=== PATIENT | male | born 1965 | race Hispanic/Latino ===

== ENCOUNTER 2017-07-13 16:44 | Emergency (ER) | payer MEDICARE ==
[~2017-07-13 16:44] MED LIST: BUPR-47 PO; CLON2TAB11 PO; COLE1TAB2 PO; FERS325 PO; GABA-531 PO; INSU100I21 SQ; LOPE2TAB52 PO; PANT40TA25 PO; SIME80TA11 PO
[2017-07-13 17:08] LABS: EOSINOPHILS % (AUTO) 2.1 % (0.0-8.0); HEMATOCRIT 28.9 % (42-54); MEAN CORPUSCULAR HEMOGLOBIN 29.3 pg (27.0-33.0); MEAN CORPUSCULAR HGB CONC 34.6 g/dL (32.0-36.0); MEAN CORPUSCULAR VOLUME 84.8 fL (79-99); MONOCYTES % (AUTO) 7.9 % (3.0-13.0); PLATELET COUNT (AUTO) 204 K/uL (130-400); RED BLOOD CELL COUNT(AUTO) 3.41 MIL/uL (4.50-6.20); WHITE BLOOD COUNT (AUTO) 6.4 K/uL (4.8-10.8)
[2017-07-13 17:20] LABS: INR 0.94 (0.85-1.15); PARTIAL THROMBOPLASTIN TIME 23.1 SEC (26.3-35.5); PROTHROMBIN TIME 9.9 SEC (9.6-11.6)
[2017-07-13 17:24] LABS: CREATININE 3.5 mg/dL (0.5-1.5); POTASSIUM 4.6 mmol/L (3.5-5.1)
[2017-07-13 17:35] LABS: APPEARANCE,URINE CLEAR (CLEAR); BILIRUBIN,URINE NEGATIVE (NEGATIVE); COLOR,URINE YELLOW (YELLOW); GLUCOSE, URINE (UA) 250 mg/dL (NEGATIVE); KETONES,URINE NEGATIVE (NEGATIVE); LEUKOCYTE ESTERASE ,URINE NEGATIVE (NEGATIVE); NITRATE,URINE NEGATIVE (NEGATIVE); OCCULT BLOOD,URINE SMALL (NEGATIVE); PROTEIN,URINE >=300 (NEGATIVE); UROBILINOGEN,URINE 0.2 mg/dL (0.2-1.0)
[2017-07-13 17:37] LABS: ALBUMIN 3.4 g/dL (3.5-5.0); BILIRUBIN,TOTAL 0.3 mg/dL (0.2-1.0); CREATINE KINASE MB 1.1 ng/mL (0.5-3.6); TOTAL PROTEIN, SERUM 6.8 g/dL (6.0-8.3)
[2017-07-13 17:44] LABS: AMPHET/METH SCREEN,URINE NEGATIVE (NEGATIVE); BARBITURATE SCREEN, URINE POSITIVE (NEGATIVE); BENZODIAZEPINES SCREEN,URINE NEGATIVE (NEGATIVE); CANNABINOID SCREEN,URINE NEGATIVE (NEGATIVE); COCAINE SCREEN,URINE NEGATIVE (NEGATIVE); OPIATE SCREEN,URINE NEGATIVE (NEGATIVE); PHENCYCLIDINE SCREEN,URINE NEGATIVE (NEGATIVE)
[2017-07-13 17:49] LABS: BACTERIA,URINE Few /HPF (None Seen); MUCUS,URINE Rare LPF (None Seen); SQUAMOUS EPITHELIAL CELL,UR Rare /HPF (0-2)
[2017-07-13 17:50] LABS: HYALINE CASTS, URINE 0-1 /LPF (0-1 /LPF)
[2017-07-13] MEDS ORDERED: HYOSCYAMINE SULFATE 0.125 MG TAB.SUBL SL ONE (17:52)
[2017-07-13] MEDS ORDERED: FAMOTIDINE 20MG TAB 20 MG TAB ONE (19:56)
== END 2017-07-13 20:16 | disposition home or self-care (01) ==
LOC: EDH 16:44
DX: K85.90 Acute pancreatitis without necrosis or infection, unspecified (principal); N28.9 Disorder of kidney and ureter, unspecified; E11.9 Type 2 diabetes mellitus without complications; I10 Essential (primary) hypertension; F32.9 Major depressive disorder, single episode, unspecified; Z88.8 Allergy status to other drugs, medicaments and biological substances; Z72.0 Tobacco use
CPT/HCPCS: 36415; 74176; 76705; 80053; 80305; 81001; 82150; 82550; 82553; 83690; 84484; 85025; 85610; 85730; 93005

== ENCOUNTER 2017-07-14 21:32 | Emergency (ER) | payer MEDICARE ==
[2017-07-14 22:12] LABS: BASOPHILS % (AUTO) 1.7 % (0.0-5.0); EOSINOPHILS % (AUTO) 1.4 % (0.0-8.0); HEMATOCRIT 31.9 % (42-54); LYMPHOCYTES % (AUTO) 21.3 % (21.0-51.0); MEAN CORPUSCULAR HEMOGLOBIN 28.6 pg (27.0-33.0); MEAN CORPUSCULAR HGB CONC 34.3 g/dL (32.0-36.0); MEAN CORPUSCULAR VOLUME 83.3 fL (79-99); MONOCYTES % (AUTO) 7.7 % (3.0-13.0); NEUTROPHILS % (AUTO) 67.9 % (40.0-77.0); PLATELET COUNT (AUTO) 246 K/uL (130-400); RED BLOOD CELL COUNT(AUTO) 3.83 MIL/uL (4.50-6.20); RED CELL DISTRIBUTION WIDTH 14.6 % (11.0-15.5); WHITE BLOOD COUNT (AUTO) 5.8 K/uL (4.8-10.8)
[2017-07-14 22:22] LABS: INR 0.98 (0.85-1.15); PARTIAL THROMBOPLASTIN TIME 23.8 SEC (26.3-35.5); PROTHROMBIN TIME 10.3 SEC (9.6-11.6)
[2017-07-14 22:23] LABS: CREATININE 3.5 mg/dL (0.5-1.5)
[2017-07-14 22:36] LABS: ALBUMIN 3.6 g/dL (3.5-5.0); BILIRUBIN,TOTAL 0.4 mg/dL (0.2-1.0); CREATINE KINASE MB 1.4 ng/mL (0.5-3.6); TOTAL PROTEIN, SERUM 7.6 g/dL (6.0-8.3)
[2017-07-14] MEDS ORDERED: HYOSCYAMINE SULFATE 0.125 MG TAB.SUBL SL ONE (22:55)
== END 2017-07-14 23:59 | disposition home or self-care (01) ==
LOC: EDH 21:32
DX: E11.40 Type 2 diabetes mellitus with diabetic neuropathy, unspecified (principal); R10.33 Periumbilical pain; R07.9 Chest pain, unspecified; R11.2 Nausea with vomiting, unspecified; I10 Essential (primary) hypertension; Z88.8 Allergy status to other drugs, medicaments and biological substances
CPT/HCPCS: 36415; 74176; 80053; 82550; 82553; 83690; 84484; 85025; 85610; 85730; 93005

== ENCOUNTER 2017-10-17 09:14 | Day surgery (SDC) | payer MEDICARE ==
[~2017-10-17] VITALS: Ht 174 cm; Wt 60.1 kg
[~2017-10-17 09:14] MED LIST changes: +AMLO10TA6 PO; +ATOR10 PO; +CHOL3000 PO; +CYCL30DR OU; +DICL100G31 TP; -FERS325 PO; +FLUT16H NASAL; -GABA-531 PO; +GLIP-162 PO; -LOPE2TAB52 PO; +MUPI22O TP; +ONDA4TAB7 PO; +PREG75 PO; +RANI150T7 PO; +SERT50TA12 PO; -SIME80TA11 PO; +SODIUM CHLORIDE 0.9% 1000ML 1,000 ML IV ONE; +SUCR1ORA3 PO
[2017-10-17 09:58] VITALS: BP 147/80
[2017-10-17] MEDS ORDERED: PANT20TA12 PO (10:22)
[2017-10-17] MEDS ORDERED: [UNRECOGNIZED DRUG - OTHER] (10:22)
[2017-10-17] MEDS ORDERED: INSU100V12 SQ (10:22)
[2017-10-17] MEDS ORDERED: REFRESH (10:22)
[2017-10-17] MEDS ORDERED: PROPOFOL 10 MG/ML 20ML VIAL IV ONE ×2 (10:33)
[2017-10-17 10:48] VITALS: BP 125/59
[2017-10-17 10:52] VITALS: BP 116/58
[2017-10-17 10:57] VITALS: BP 125/64
[2017-10-17 11:02] VITALS: BP 112/70
[2017-10-17 11:07] VITALS: BP 135/88
== END 2017-10-17 12:36 | disposition home or self-care (01) ==
LOC: ENDO 09:14 → DAH 09:14 → ENDO 12:36
PROVIDERS: ATTEND Internal Medicine
DX: K29.50 Unspecified chronic gastritis without bleeding (principal); K31.89 Other diseases of stomach and duodenum; K22.8 Other specified diseases of esophagus; E11.42 Type 2 diabetes mellitus with diabetic polyneuropathy; K25.9 Gastric ulcer, unspecified as acute or chronic, without hemorrhage or perforation; B18.2 Chronic viral hepatitis C; K21.9 Gastro-esophageal reflux disease without esophagitis; I12.9 Hypertensive chronic kidney disease with stage 1 through stage 4 chronic kidney disease, or unspecified chronic kidney disease; E11.22 Type 2 diabetes mellitus with diabetic chronic kidney disease; N18.9 Chronic kidney disease, unspecified; D64.9 Anemia, unspecified; Z83.3 Family history of diabetes mellitus; Z79.899 Other long term (current) drug therapy; Z98.890 Other specified postprocedural states; F32.9 Major depressive disorder, single episode, unspecified; Z79.84 Long term (current) use of oral hypoglycemic drugs; Z80.9 Family history of malignant neoplasm, unspecified
CPT/HCPCS: 43239; 82948 ×2; 88305; 88342; A4606; J2704 ×2; J7030

== ENCOUNTER 2017-10-24 13:50 | Emergency (ER) | payer MEDICARE ==
[~2017-10-24 13:50] MED LIST changes: -DICL100G31 TP; -INSU100I21 SQ; +INSU100V12 SQ; -MUPI22O TP; -ONDA4TAB7 PO; +PANT20TA12 PO; -PANT40TA25 PO; +REFRESH; -SODIUM CHLORIDE 0.9% 1000ML 1,000 ML IV ONE; -SUCR1ORA3 PO; +[UNRECOGNIZED DRUG - OTHER]
[2017-10-24 14:47] LABS: BASOPHILS % (AUTO) 1.1 % (0.0-5.0); HEMATOCRIT 25.9 % (42-54); LYMPHOCYTES % (AUTO) 23.2 % (21.0-51.0); MEAN CORPUSCULAR HEMOGLOBIN 29.1 pg (27.0-33.0); MEAN CORPUSCULAR HGB CONC 32.7 g/dL (32.0-36.0); MEAN CORPUSCULAR VOLUME 89.1 fL (79-99); MONOCYTES % (AUTO) 9.8 % (3.0-13.0); NEUTROPHILS % (AUTO) 61.9 % (40.0-77.0); PLATELET COUNT (AUTO) 215 K/uL (130-400); RED BLOOD CELL COUNT(AUTO) 2.91 MIL/uL (4.50-6.20); WHITE BLOOD COUNT (AUTO) 4.7 K/uL (4.8-10.8)
== END 2017-10-24 16:19 | disposition home or self-care (01) ==
LOC: EDH 13:50
DX: R06.02 Shortness of breath (principal); R53.83 Other fatigue; R42 Dizziness and giddiness; R53.1 Weakness; I10 Essential (primary) hypertension; E11.40 Type 2 diabetes mellitus with diabetic neuropathy, unspecified; Z88.8 Allergy status to other drugs, medicaments and biological substances; F19.10 Other psychoactive substance abuse, uncomplicated; Z72.0 Tobacco use
CPT/HCPCS: 36415; 84484; 85025; 93005

== ENCOUNTER → 2018-02-02 | Outpatient (CLI) | payer MEDICARE | END | disposition home or self-care (01) | LOC: RAH 11:06 | PROVIDERS: ATTEND Internal Medicine Gastroenterology | DX: R10.10 Upper abdominal pain, unspecified (principal); R11.2 Nausea with vomiting, unspecified; R14.0 Abdominal distension (gaseous); K85.00 Idiopathic acute pancreatitis without necrosis or infection | CPT/HCPCS: 78264; A9541 ==

== ENCOUNTER → 2018-02-08 | Outpatient (CLI) | payer MEDICARE | END | disposition home or self-care (01) | LOC: RAH 08:10 | PROVIDERS: ATTEND Internal Medicine Gastroenterology | DX: K85.00 Idiopathic acute pancreatitis without necrosis or infection (principal); R10.10 Upper abdominal pain, unspecified | CPT/HCPCS: 76700 ==

== ENCOUNTER 2018-02-14 05:30 | Day surgery (SDC) | payer MEDICARE ==
[~2018-02-14] VITALS: Ht 175.3 cm; Wt 60.3 kg
[2018-02-14] VITALS (8 sets, daily range): BP systolic 110–173; BP diastolic 55–89
[~2018-02-14 05:30] MED LIST changes: -AMLO10TA6 PO; +AMLO10TA7 PO
[2018-02-14] MEDS ORDERED: SODIUM CHLORIDE 0.9% 1000ML 1,000 ML IV ONE (05:45)
[2018-02-14] MEDS ORDERED: PROPOFOL 10 MG/ML 20ML VIAL IV ONE ×2 (06:45→06:46)
[2018-02-14] MEDS ORDERED: CARAL PO (06:50)
[2018-02-14] MEDS ORDERED: TIZA2TAB4 PO (06:50)
[2018-02-14] MEDS ORDERED: GABA-531 PO (06:50)
[2018-02-14] MEDS ORDERED: INSU100I21 SQ (06:50)
[2018-02-14] MEDS ORDERED: HYDR-3420 PO (06:50)
[2018-02-14] MEDS ORDERED: IRON1CAP32 PO (06:50)
[2018-02-14] MEDS ORDERED: SERT100T12 PO (06:50)
[2018-02-14] MEDS ORDERED: ONDA8TAB12 PO (06:50)
[2018-02-14] MEDS ORDERED: LOPE2CAP PO (06:50)
[2018-02-14] MEDS ORDERED: VITAMIN D PO (06:50)
[2018-02-14] MEDS ORDERED: FAMO20TA8 PO (06:50)
== END 2018-02-14 08:10 | disposition home or self-care (01) ==
LOC: DAH 05:30 → ENDO 05:30
PROVIDERS: ATTEND Internal Medicine
DX: K86.9 Disease of pancreas, unspecified (principal); K76.89 Other specified diseases of liver; K31.89 Other diseases of stomach and duodenum; E11.42 Type 2 diabetes mellitus with diabetic polyneuropathy; K21.9 Gastro-esophageal reflux disease without esophagitis; E11.22 Type 2 diabetes mellitus with diabetic chronic kidney disease; N18.9 Chronic kidney disease, unspecified; D64.9 Anemia, unspecified; Z79.899 Other long term (current) drug therapy; Z80.9 Family history of malignant neoplasm, unspecified; Z79.84 Long term (current) use of oral hypoglycemic drugs
CPT/HCPCS: 43237; 82948 ×2; J2704 ×2; J7030; 43231

== ENCOUNTER 2018-02-27 17:55 | Emergency (ER) | payer MEDICARE ==
[~2018-02-27 17:55] MED LIST changes: -BUPR-47 PO; +CARAL PO; -CHOL3000 PO; -CLON2TAB11 PO; +FAMO20TA8 PO; +GABA-531 PO; -GLIP-162 PO; +HYDR-3420 PO; +INSU100I21 SQ; -INSU100V12 SQ; +IRON1CAP32 PO; +LOPE2CAP PO; +ONDA8TAB12 PO; -PANT20TA12 PO; -PREG75 PO; -REFRESH; +SERT100T12 PO; -SERT50TA12 PO; +TIZA2TAB4 PO; +VITAMIN D PO; -[UNRECOGNIZED DRUG - OTHER]
[2018-02-27] MEDS ORDERED: ASPIRIN 325 MG TABLET ONE (18:20)
[2018-02-27 18:27] LABS: BASOPHILS % (AUTO) 1.3 % (0.0-5.0); EOSINOPHILS % (AUTO) 5.7 % (0.0-8.0); LYMPHOCYTES % (AUTO) 23.4 % (21.0-51.0); MEAN CORPUSCULAR HEMOGLOBIN 29.8 pg (27.0-33.0); MEAN CORPUSCULAR HGB CONC 33.3 g/dL (32.0-36.0); MEAN CORPUSCULAR VOLUME 89.5 fL (79-99); MONOCYTES % (AUTO) 8.3 % (3.0-13.0); NEUTROPHILS % (AUTO) 61.3 % (40.0-77.0); NUCLEATED RED BLOOD CELLS 0.1 % (0.0-0.19); PLATELET COUNT (AUTO) 192 K/uL (130-400); RED BLOOD CELL COUNT(AUTO) 2.79 MIL/uL (4.50-6.20); RED CELL DISTRIBUTION WIDTH 13.7 % (11.0-15.5)
[2018-02-27 18:40] LABS: INR 0.91 (0.85-1.15); PARTIAL THROMBOPLASTIN TIME 26.4 SEC (26.3-35.5); PROTHROMBIN TIME 9.6 SEC (9.6-11.6)
[2018-02-27 18:52] LABS: ALBUMIN 3.6 g/dL (3.5-5.0); BILIRUBIN,TOTAL 0.3 mg/dL (0.2-1.0); CREATININE 3.9 mg/dL (0.5-1.5); POTASSIUM 4.7 mmol/L (3.5-5.1); TOTAL PROTEIN, SERUM 7.1 g/dL (6.0-8.3)
[2018-02-27 19:01] LABS: B-TYPE NATRIURETIC PEPTIDE 92 pg/mL (0-100)
[2018-02-27] MEDS ORDERED: 0.9% SODIUM CHLORIDE 1000 ML IV BAG IV ONE (19:01)
[2018-02-27] MEDS ORDERED: INSULIN HUMULIN R 100 UNIT/ML 3ML ONE (19:34)
== END 2018-02-27 22:15 | disposition home or self-care (01) ==
LOC: EDH 17:55
DX: E11.65 Type 2 diabetes mellitus with hyperglycemia (principal); I10 Essential (primary) hypertension; D64.9 Anemia, unspecified; E11.40 Type 2 diabetes mellitus with diabetic neuropathy, unspecified; F32.9 Major depressive disorder, single episode, unspecified; F41.9 Anxiety disorder, unspecified; Z72.0 Tobacco use; Z88.8 Allergy status to other drugs, medicaments and biological substances; Z79.4 Long term (current) use of insulin
CPT/HCPCS: 36415; 71045; 80053; 82550; 82948 ×2; 83880; 84484; 85025; 85610; 85730; 93005; 96361; 96374; 99284; J1815; J7030

== ENCOUNTER 2018-04-23 12:43 | Inpatient (IN) | payer MEDICARE ==
[~2018-04-23] VITALS: Ht 170.2 cm; Wt 61.7 kg
[2018-04-23] MEDS ORDERED: ASPIRIN 325MG EC TAB 325 MG TABLET.DR PO ONE (13:48)
[2018-04-23] MEDS ORDERED: ENOXAPARIN SODIUM 30 MG/0.3 ML SQ ONE (13:49)
[2018-04-23] MEDS ORDERED: FAMOTIDINE 20MG TAB 20 MG TAB ONE (13:49)
[2018-04-23] MEDS ORDERED: NITROGLYCERIN 1GM/1 INCH PACKET TD ONE (13:49)
[2018-04-23 13:54] LABS: CREATINE KINASE, TOTAL 120 U/L (21-232); MYOGLOBIN 112 ng/mL (10-92); TROPONIN I < 0.04 ng/mL (0.00-0.06)
[2018-04-23 15:11] LABS: BASOPHILS % (AUTO) 2.1 % (0.0-5.0); EOSINOPHILS % (AUTO) 8.4 % (0.0-8.0); HEMATOCRIT 26.7 % (42-54); LYMPHOCYTES % (AUTO) 19.8 % (21.0-51.0); MEAN CORPUSCULAR HEMOGLOBIN 29.8 pg (27.0-33.0); MEAN CORPUSCULAR HGB CONC 33.6 g/dL (32.0-36.0); MEAN CORPUSCULAR VOLUME 88.5 fL (79-99); MONOCYTES % (AUTO) 7.1 % (3.0-13.0); NEUTROPHILS % (AUTO) 62.6 % (40.0-77.0); NUCLEATED RED BLOOD CELLS 0.1 % (0.0-0.19); PLATELET COUNT (AUTO) 223 K/uL (130-400); RED BLOOD CELL COUNT(AUTO) 3.01 MIL/uL (4.50-6.20); RED CELL DISTRIBUTION WIDTH 14.1 % (11.0-15.5); WHITE BLOOD COUNT (AUTO) 4.3 K/uL (4.8-10.8)
[2018-04-23 15:20] LABS: CREATININE 4.8 mg/dL (0.5-1.5); POTASSIUM 4.9 mmol/L (3.5-5.1)
[2018-04-23 15:25] LABS: BILIRUBIN,TOTAL 0.2 mg/dL (0.2-1.0); TOTAL PROTEIN, SERUM 6.7 g/dL (6.0-8.3)
[2018-04-23 15:54] LABS: INR 0.96 (0.85-1.15); PARTIAL THROMBOPLASTIN TIME 25.6 SEC (26.3-35.5); PROTHROMBIN TIME 9.9 SEC (9.6-11.6)
--- NOTE | 2018-04-23 21:40 | NUR ---
ASSESSMENT NOTE 2107 REPORT RECEIVED FROM MARCO A HERNANDEZ. 2132 PATIENT ARRIVED TO ROOM 218 VIA STRETCHER AND TRANSFERRED INDEPENDENTLY WITH STANDBY ASSIST TO BATHROOM AND THEN TO BED. PATIENT REMOVED PANTS AND PUT ON SLEEPWEAR. PLAN OF CARE DISCUSSED WITH PATIENT. ASSESSMENT COMPLETED. DENIES ACUTE PAIN AT THIS TIME. REINFORCED SAFETY INSTRUCTION. CALL LIGHT IN REACH.
[2018-04-23 21:46] VITALS: BP 162/88
[2018-04-23] MEDS: ACETAMINOPHEN 325 MG TAB ONE ×2 (22:42→22:45)
[2018-04-23] MEDS ORDERED: ACETAMINOPHEN 325 MG TAB PO PRN ×2 (22:45)
[2018-04-23] MEDS ORDERED: HYDROMORPHONE 4MG/ML 1ML VIAL IVP PRN (22:45)
[2018-04-23 22:47] VITALS: BP 162/88
--- NOTE | 2018-04-23 22:50 | NUR ---
HEADACHE 0 PATIENT COMPLAINT OF HEADACHE. NO ANALGESIC PROFILED FOR PAIN. DR DESIR PAGED ORDERS RECEIVED AND ENTERED INTO SYSTEM. PATIENT MEDICATED.
[2018-04-24] VITALS (7 sets, daily range): BP systolic 115–158; BP diastolic 63–87
[2018-04-24 00:02] LABS: TROPONIN I 0.04 ng/mL (0.00-0.06)
[2018-04-24] MEDS: NITROGLYCERIN 1GM/1 INCH PACKET TD SCH ×2 (00:35→05:44)
[2018-04-24] MEDS ORDERED: LOPERAMIDE HCL 2 MG CAP PO PRN (01:45)
[2018-04-24] MEDS ORDERED: LOPE2CAP PO (01:48)
[2018-04-24] MEDS ORDERED: TAMS0.4C32 PO (01:48)
[2018-04-24] MEDS ORDERED: PANT40TA25 PO (01:48)
[2018-04-24] MEDS: ONDANSETRON HCL 4 MG/2 ML VIAL IVP PRN (06:03)
[2018-04-24 06:06] LABS: HEMATOCRIT 25.7 % (42-54); MEAN CORPUSCULAR HEMOGLOBIN 29.1 pg (27.0-33.0); MEAN CORPUSCULAR HGB CONC 33.2 g/dL (32.0-36.0); MEAN CORPUSCULAR VOLUME 87.5 fL (79-99); PLATELET COUNT (AUTO) 213 K/uL (130-400); RED BLOOD CELL COUNT(AUTO) 2.94 MIL/uL (4.50-6.20); RED CELL DISTRIBUTION WIDTH 13.9 % (11.0-15.5); WHITE BLOOD COUNT (AUTO) 3.5 K/uL (4.8-10.8)
--- NOTE | 2018-04-24 06:14 | NUR ---
TRANSFER TO GI PATIENT LEFT TO GI LAB WITH MARCO A OLEARY. PATIENT ALERT AWAKE AND ORIENTED. NO SIGNS OF DISTRESS. TRANSFERRED WITH PORTABLE MONITOR
[2018-04-24 06:19] LABS: INR 0.95 (0.85-1.15)
[2018-04-24 06:21] LABS: ALBUMIN 2.7 g/dL (3.5-5.0); BILIRUBIN,TOTAL 0.2 mg/dL (0.2-1.0); CREATININE 4.6 mg/dL (0.5-1.5); POTASSIUM 4.5 mmol/L (3.5-5.1); TOTAL PROTEIN, SERUM 6.4 g/dL (6.0-8.3)
[2018-04-24 06:26] LABS: TROPONIN I 0.05 ng/mL (0.00-0.06)
[2018-04-24] MEDS ORDERED: LIDOCAINE HCL 2% 20ML ONE (06:56)
[2018-04-24] MEDS ORDERED: PROPOFOL 10 MG/ML 20ML VIAL IV ONE (06:56)
[2018-04-24] MEDS ORDERED: SUCCINYLCHOLINE CHLORIDE 20 MG/ML 10 ML VIAL ONE (06:56)
[2018-04-24] MEDS ORDERED: REGADENOSON 0.4 MG/5 ML PF SYG IVP SCH (07:00)
[2018-04-24] MEDS: FAMOTIDINE 20MG TAB 20 MG TAB PO SCH (09:00)
[2018-04-24] MEDS ORDERED: ASPIRIN 325 MG TABLET PO SCH (09:00)
[2018-04-24] MEDS ORDERED: NITROGLYCERIN 0.4 MG SL TAB SL PRN (09:45)
[2018-04-24 10:04] LABS: AMPHET/METH SCREEN,URINE NEGATIVE (NEGATIVE); BARBITURATE SCREEN, URINE NEGATIVE (NEGATIVE); BENZODIAZEPINES SCREEN,URINE NEGATIVE (NEGATIVE); CANNABINOID SCREEN,URINE NEGATIVE (NEGATIVE); COCAINE SCREEN,URINE NEGATIVE (NEGATIVE); OPIATE SCREEN,URINE NEGATIVE (NEGATIVE); PHENCYCLIDINE SCREEN,URINE NEGATIVE (NEGATIVE)
[2018-04-24] MEDS: TAMSULOSIN HCL 0.4 MG CAP.ER.24H PO SCH (11:17)
[2018-04-24] MEDS: AMLODIPINE BESYLATE 5 MG TAB PO SCH (11:17)
[2018-04-24] MEDS: GABAPENTIN 300 MG CAPSULE PO SCH (11:17)
[2018-04-24] MEDS: PANTOPRAZOLE SODIUM 40 MG TABLET.DR PO SCH (11:17)
[2018-04-24] MEDS: ENOXAPARIN SODIUM 30 MG/0.3 ML SQ SCH (11:17)
[2018-04-24] MEDS: INSULIN GLARGINE 100 UNITS/ML 10 ML VIAL SQ SCH (11:57)
--- NOTE | 2018-04-24 14:39 | NUR ---
DC PLAN VISITED WITH PATIENT. PATIENT LIVES ALONE. SEMI INDEPENDENT ABLE TO PERFORM ADL'S. PATIENT HAS PROVIDER 4 HOURS A DAY. PATIENT HAS A CANE. FEELS SAFE TO RETURN HOME. Addendum: 04/24/18 at 1441 by KRISTIN HILL RN CM Amended: Links added.
--- NOTE | 2018-04-24 17:04 | NUR ---
SPOKE WITH RENAE FROM RADIOLOGY---STATED IT IS GOING TO TAKE 30 MINUTES FOR RADIOLOGIST TO READ CT CHEST. INFORMED PRIMARY NURSE, CE RAMEY RN.
--- NOTE | 2018-04-24 17:30 | NUR ---
TRANSFER PT RECEIVED FROM RM 218 VIA . TOLERATED WELL. NO DISTRESS NOTED. ORIENTED TO RM. A/O X 3. DENIES CHEST PAIN OR DISCOMFORT. DENIES PALPITATIONS. TELE: SR. DENIES N/V AND/OR DIARRHEA. PENDING CT CHEST RESULT. UP AD KELLEY. INSTRUCTED TO CALL FOR ASSISTANCE. CALL KARELY W/IN REACH.
[2018-04-24] MEDS ORDERED: ATORVASTATIN CALCIUM 10 MG TABLET PO SCH (21:00)
[2018-04-24] MEDS ORDERED: INSULIN GLARGINE 100 UNITS/ML 10 ML VIAL SQ SCH (21:00)
[2018-04-25 03:55] VITALS: BP 140/75
[2018-04-25 07:27] VITALS: BP 143/81
--- NOTE | 2018-04-25 07:45 | NUR ---
AM ASSESSMENT PT SITTING UP IN BED, WATCHING TV. A/O X 3. NO SOB. NO DISTRESS NOTED. DENIES CHEST PAIN OR DISCOMFORT. DENIES PALPITATIONS. TELE: SR 70s. (+) NAUSEA. ZOFRAN TO BE GIVEN. STATES "ALWAYS" HAVING NAUSEA IN AM. UP AD KELLEY. INSTRUCTED TO CALL FOR ASSISTANCE. CALL KARELY W/IN REACH.
[2018-04-25] MEDS: PANTOPRAZOLE SODIUM 40 MG TABLET.DR PO SCH (08:13)
[2018-04-25] MEDS: AMLODIPINE BESYLATE 5 MG TAB PO SCH (08:13)
[2018-04-25] MEDS: FAMOTIDINE 20MG TAB 20 MG TAB PO SCH (08:13)
[2018-04-25] MEDS: ONDANSETRON HCL 4 MG/2 ML VIAL IVP PRN (08:14)
[2018-04-25] MEDS: TAMSULOSIN HCL 0.4 MG CAP.ER.24H PO SCH (08:14)
[2018-04-25] MEDS: GABAPENTIN 300 MG CAPSULE PO SCH (08:14)
[2018-04-25] MEDS: ENOXAPARIN SODIUM 30 MG/0.3 ML SQ SCH (08:16)
[2018-04-25] MEDS: INSULIN GLARGINE 100 UNITS/ML 10 ML VIAL SQ SCH (08:16)
[2018-04-25] MEDS ORDERED: VITAMIN D 5000 UNIT PO SCH (09:00)
[2018-04-25] MEDS ORDERED: ASPIRIN 325 MG TABLET PO SCH (09:00)
[2018-04-25] MEDS ORDERED: COLESTIPOL HCL 2 GM PO SCH (09:00)
[2018-04-25] MEDS ORDERED: ASPIRIN 81 MG EC TAB PO SCH (09:00)
--- NOTE | 2018-04-25 11:10 | NUR ---
DISCHARGE VERBAL & WRITTEN DISCHARGE INSTRUCTIONS REVIEWED & GIVEN TO PT. QUESTIONS ENCOURAGED & CLARIFIED. PROPER CARE & MGT OF DYSPHAGIA REVIEWED. PT TO CONTINUE TAKING HOME MEDICATIONS. F/U APPT INFO GIVEN. TELE JIGNESH REMOVED. IV DISCONTINUED. FAMILY TAKE PT HOME. PT TO NOTIFY STAFF WHEN FAMILY ARRIVES. PT REQUESTING TO HAVE LUNCH PRIOR TO LEAVING. PT TO GATHER PERSONAL BELONGINGS.
[2018-04-25 11:13] VITALS: BP 141/79
--- NOTE | 2018-04-25 13:05 | NUR ---
DISCHARGE FAMILY HERE TO TAKE PT HOME. PT TAKEN TO PRIVATE VEHICLE VIA WC BY Scott GRAMAJO PCP. NO DISTRESS NOTED.
== END 2018-04-25 13:00 | disposition home or self-care (01) | DRG 391 ==
LOC: EDH 12:43 → EDHIP 12:44 → 2CH 21:33 → 2DH 04-24 18:01
PROVIDERS: ADMIT Family Medicine; ATTEND Family Medicine
PROC: 0D758ZZ Dilation of Esophagus, Via Natural or Artificial Opening Endoscopic (ICD-10-PCS; principal; 2018-04-23)
DX: K22.2 Esophageal obstruction (principal); N18.6 End stage renal disease; I12.0 Hypertensive chronic kidney disease with stage 5 chronic kidney disease or end stage renal disease; R13.10 Dysphagia, unspecified; E11.22 Type 2 diabetes mellitus with diabetic chronic kidney disease; B18.2 Chronic viral hepatitis C; D63.8 Anemia in other chronic diseases classified elsewhere; F14.10 Cocaine abuse, uncomplicated; E78.5 Hyperlipidemia, unspecified; E11.42 Type 2 diabetes mellitus with diabetic polyneuropathy; K21.9 Gastro-esophageal reflux disease without esophagitis; Z87.891 Personal history of nicotine dependence; Z91.19 Patient's noncompliance with other medical treatment and regimen
CPT/HCPCS: 36415; 43249; 71250; 80053; 80305; 82550; 82948; 83874; 84484; 85025; 85027; 85610; 85730; 93005; G0378; J0330; J1650; J2405; J2704; J2785; J3490

== ENCOUNTER 2018-06-05 07:15 | Day surgery (SDC) | payer MEDICARE ==
[~2018-06-05] VITALS: Ht 170.2 cm; Wt 61.2 kg
[~2018-06-05 07:15] MED LIST changes: -CARAL PO; -CYCL30DR OU; -FAMO20TA8 PO; -FLUT16H NASAL; -HYDR-3420 PO; -IRON1CAP32 PO; -ONDA8TAB12 PO; +PANT40TA25 PO; -RANI150T7 PO; -SERT100T12 PO; +SODIUM CHLORIDE 0.9% 1000ML 1,000 ML IV ONE; +TAMS0.4C32 PO; -TIZA2TAB4 PO; -VITAMIN D PO
[2018-06-05 08:48] VITALS: BP 152/96
[2018-06-05] MEDS ORDERED: PROPOFOL 10 MG/ML 20ML VIAL IV ONE (10:06)
[2018-06-05] MEDS ORDERED: LIDOCAINE HCL 2% 20ML ONE (10:06)
[2018-06-05 10:22] VITALS: BP 143/69
[2018-06-05 10:27] VITALS: BP 150/78
[2018-06-05 10:32] VITALS: BP 168/94
[2018-06-05 10:40] VITALS: BP 166/94
== END 2018-06-05 10:40 | disposition home or self-care (01) ==
LOC: DAH 07:15 → ENDO 07:15
PROVIDERS: ATTEND Internal Medicine
DX: K21.0 Gastro-esophageal reflux disease with esophagitis (principal); K44.9 Diaphragmatic hernia without obstruction or gangrene; E11.42 Type 2 diabetes mellitus with diabetic polyneuropathy; K29.70 Gastritis, unspecified, without bleeding; K21.9 Gastro-esophageal reflux disease without esophagitis; Z88.8 Allergy status to other drugs, medicaments and biological substances; E11.22 Type 2 diabetes mellitus with diabetic chronic kidney disease; N18.9 Chronic kidney disease, unspecified; Z79.899 Other long term (current) drug therapy; Z98.890 Other specified postprocedural states; M54.5 Low back pain; Z80.9 Family history of malignant neoplasm, unspecified
CPT/HCPCS: 36415; 43239; 43249; 82948; 84132; 88305; A4606; J2704; J3490; J7030

== ENCOUNTER 2018-06-18 14:17 | Inpatient (IN) | payer MEDICARE | END 2018-06-21 18:22 | disposition home or self-care (01) | LOC: EDH 14:17 → EDHIP 17:05 → 2AH 20:43 | DX: E11.65 Type 2 diabetes mellitus with hyperglycemia (principal); N18.6 End stage renal disease; I12.0 Hypertensive chronic kidney disease with stage 5 chronic kidney disease or end stage renal disease; A04.72 Enterocolitis due to Clostridium difficile, not specified as recurrent; Z99.2 Dependence on renal dialysis; E11.22 Type 2 diabetes mellitus with diabetic chronic kidney disease ==

== ENCOUNTER 2018-07-15 12:48 | Emergency (ER) | payer MEDICARE ==
[~2018-07-15 12:48] MED LIST changes: -SODIUM CHLORIDE 0.9% 1000ML 1,000 ML IV ONE
[2018-07-15] MEDS ORDERED: PROCHLORPERAZINE EDISYLATE 10 MG/2 ML VIAL ONE (13:33)
[2018-07-15] MEDS ORDERED: DiphenhydrAMINE HCL 50 MG/ML VIAL ONE (13:33)
[2018-07-15] MEDS ORDERED: FAMOTIDINE/PF 20 MG/2 ML VIAL IV ONE (13:34)
[2018-07-15 13:38] LABS: BASOPHILS % (AUTO) 1.2 % (0.0-5.0); EOSINOPHILS % (AUTO) 1.7 % (0.0-8.0); HEMATOCRIT 41.7 % (42-54); LYMPHOCYTES % (AUTO) 19.7 % (21.0-51.0); MEAN CORPUSCULAR HEMOGLOBIN 30.4 pg (27.0-33.0); MEAN CORPUSCULAR HGB CONC 33.4 g/dL (32.0-36.0); MONOCYTES % (AUTO) 6.2 % (3.0-13.0); NEUTROPHILS % (AUTO) 71.2 % (40.0-77.0); NUCLEATED RED BLOOD CELLS 0.1 % (0.0-0.19); PLATELET COUNT (AUTO) 167 K/uL (130-400); RED BLOOD CELL COUNT(AUTO) 4.58 MIL/uL (4.50-6.20); RED CELL DISTRIBUTION WIDTH 16.9 % (11.0-15.5); WHITE BLOOD COUNT (AUTO) 4.2 K/uL (4.8-10.8)
[2018-07-15 13:48] LABS: CREATININE 4.8 mg/dL (0.5-1.5); POTASSIUM 3.9 mmol/L (3.5-5.1)
== END 2018-07-15 15:56 | disposition home or self-care (01) ==
LOC: EDH 12:48
DX: R10.13 Epigastric pain (principal); R11.2 Nausea with vomiting, unspecified; F41.9 Anxiety disorder, unspecified; Z88.8 Allergy status to other drugs, medicaments and biological substances
CPT/HCPCS: 36415; 80048; 85025; 96374; 96375; 99284; J0780; J1200; J3490

== ENCOUNTER → 2018-08-28 | Outpatient (CLI) | payer MEDICARE ==
[~2018-08-28] VITALS: Ht 172.7 cm; Wt 57.2 kg
[2018-08-28 13:57] LABS: BASOPHILS % (AUTO) 0.6 % (0.0-5.0); EOSINOPHILS % (AUTO) 3.8 % (0.0-8.0); HEMATOCRIT 38.5 % (42-54); LYMPHOCYTES % (AUTO) 26.8 % (21.0-51.0); MEAN CORPUSCULAR HEMOGLOBIN 30.2 pg (27.0-33.0); MEAN CORPUSCULAR HGB CONC 33.7 g/dL (32.0-36.0); MEAN CORPUSCULAR VOLUME 89.4 fL (79-99); MONOCYTES % (AUTO) 6.8 % (3.0-13.0); NUCLEATED RED BLOOD CELLS 0.1 % (0.0-0.19); PLATELET COUNT (AUTO) 155 K/uL (130-400); RED BLOOD CELL COUNT(AUTO) 4.31 MIL/uL (4.50-6.20); RED CELL DISTRIBUTION WIDTH 14.3 % (11.0-15.5); WHITE BLOOD COUNT (AUTO) 4.5 K/uL (4.8-10.8)
[2018-08-28 14:07] LABS: CREATININE 3.9 mg/dL (0.5-1.5); HEMOGLOBIN A1C 9.4 % (4.0-6.0); POTASSIUM 3.9 mmol/L (3.5-5.1)
[2018-08-28 14:08] LABS: INR 0.96 (0.85-1.15); PARTIAL THROMBOPLASTIN TIME 27.2 SEC (26.3-35.5); PROTHROMBIN TIME 10.1 SEC (9.6-11.6)
[2018-08-28 14:14] VITALS: BP 153/78
== END ==
LOC: DAH 10:00 → EDSTATUS 08-29 10:00
PROVIDERS: ATTEND Thoracic Surgery (Cardiothoracic Vascular Surgery)
DX: Z01.818 Encounter for other preprocedural examination (principal); I12.0 Hypertensive chronic kidney disease with stage 5 chronic kidney disease or end stage renal disease; E11.22 Type 2 diabetes mellitus with diabetic chronic kidney disease; N18.6 End stage renal disease; F41.9 Anxiety disorder, unspecified; Z79.4 Long term (current) use of insulin; Z79.899 Other long term (current) drug therapy; Z72.89 Other problems related to lifestyle; Z83.3 Family history of diabetes mellitus
CPT/HCPCS: 36415; 80048; 83036; 85025; 85610; 85730; 93005

== ENCOUNTER 2018-10-04 07:06 | Observation (INO) | payer MEDICARE | END 2018-10-05 08:15 | disposition home or self-care (01) | LOC: DAH 07:06 → DAHIP 07:07 → 3DH 14:34 ==

== ENCOUNTER → 2019-04-25 | Outpatient (CLI) | payer MEDICARE ==
[~2019-04-25] MED LIST changes: -AMLO10TA7 PO; -ATOR10 PO; +ATOR10TA69 PO; +BACL10TA PO; +BP MED PO; +CITA20TA17 PO; +CLON0.1T PO; +FLUTICASONE SPRAY NASAL; +INSU100C14 SQ; -INSU100I21 SQ; -LOPE2CAP PO; +MELOXICAM; +PANT20TA12 PO; -PANT40TA25 PO; +PROM25TA7 PO; -TAMS0.4C32 PO; +ZOLP10TA6 PO
== END | disposition home or self-care (01) ==
LOC: OIH 10:55
PROVIDERS: ATTEND Internal Medicine
DX: M89.9 Disorder of bone, unspecified (principal); M06.4 Inflammatory polyarthropathy
CPT/HCPCS: 73070; 73560

== ENCOUNTER 2019-05-28 14:37 | Inpatient (IN) | payer MEDICARE ==
[~2019-05-28 14:37] MED LIST changes: -PANT20TA12 PO; +PANT20TA18 PO
[2019-05-28 14:51] LABS: EOSINOPHILS % (AUTO) 13.9 % (0.0-8.0); HEMATOCRIT 38.5 % (42-54); LYMPHOCYTES % (AUTO) 18.3 % (21.0-51.0); MEAN CORPUSCULAR HEMOGLOBIN 30.1 pg (27.0-33.0); MEAN CORPUSCULAR HGB CONC 31.9 g/dL (32.0-36.0); MEAN CORPUSCULAR VOLUME 94.1 fL (79-99); MONOCYTES % (AUTO) 9.4 % (3.0-13.0); NEUTROPHILS % (AUTO) 57.2 % (40.0-77.0); PLATELET COUNT (AUTO) 126 K/uL (130-400); RED BLOOD CELL COUNT(AUTO) 4.09 MIL/uL (4.50-6.20); RED CELL DISTRIBUTION WIDTH 12.5 % (11.0-15.5); WHITE BLOOD COUNT (AUTO) 4.8 K/uL (4.8-10.8)
[2019-05-28 15:03] LABS: INR 0.97 (0.85-1.15); PARTIAL THROMBOPLASTIN TIME 29.4 SEC (26.3-35.5); PROTHROMBIN TIME 10.5 SEC (9.6-11.6)
[2019-05-28 15:06] LABS: ALBUMIN 3.5 g/dL (3.5-5.0); BILIRUBIN,TOTAL 0.3 mg/dL (0.2-1.0); POTASSIUM 5.9 mmol/L (3.5-5.1); TOTAL PROTEIN, SERUM 7.3 g/dL (6.0-8.3)
[2019-05-28 15:42] LABS: APPEARANCE,URINE Clear (CLEAR); BILIRUBIN,URINE Negative (NEGATIVE); COLOR,URINE Yellow (YELLOW); GLUCOSE, URINE (UA) 500 mg/dL (NEGATIVE); KETONES,URINE Negative (NEGATIVE); LEUKOCYTE ESTERASE ,URINE Negative (NEGATIVE); NITRATE,URINE Negative (NEGATIVE); OCCULT BLOOD,URINE Small (NEGATIVE); PROTEIN,URINE 300 mg/dL (NEGATIVE); UROBILINOGEN,URINE 0.2 mg/dL (0.2-1.0)
[2019-05-28 15:49] LABS: AMPHET/METH SCREEN,URINE NEGATIVE (NEGATIVE); BARBITURATE SCREEN, URINE NEGATIVE (NEGATIVE); BENZODIAZEPINES SCREEN,URINE NEGATIVE (NEGATIVE); CANNABINOID SCREEN,URINE NEGATIVE (NEGATIVE); COCAINE SCREEN,URINE NEGATIVE (NEGATIVE); OPIATE SCREEN,URINE NEGATIVE (NEGATIVE); PHENCYCLIDINE SCREEN,URINE NEGATIVE (NEGATIVE)
[2019-05-28 16:17] LABS: WBC,URINE 0-1 /HPF (0-1)
[2019-05-28 16:18] LABS: BACTERIA,URINE Few /HPF (None Seen); SPERM,URINE Few /HPF (None Seen); SQUAMOUS EPITHELIAL CELL,UR Rare /HPF (0-2); TRANSITIONAL EPI CELLS,URINE Few /HPF (None Seen)
[2019-05-28 17:13] LABS: ABG BASE EXCESS -8.5 mmol/L (-2.0-3.0); ABG HCO3 16.9 mmol/L (21.0-28.0); ABG OXYGEN SATURATION 98.3 % (95.0-99.0); ABG PCO2 35 mmHg (35-48)
[2019-05-28] MEDS ORDERED: LABETALOL 20 MG/4 ML DISP.SYRIN IV ONE (17:19)
[2019-05-28] MEDS ORDERED: SODIUM POLYSTYRENE SULFONATE 15 GM/60 ML ML ONE (19:43)
[2019-05-28] MEDS ORDERED: CLONIDINE HCL 0.1 MG TABLET ONE ×2 (19:43→21:46)
[2019-05-28] MEDS ORDERED: CLONIDINE HCL 0.1 MG TABLET PO PRN (21:45)
--- NOTE | 2019-05-28 22:00 | NUR ---
texted doctor pedro cheng about patient's high blood pressure and persistent tremors and confusion. she ordered hydralazine 10 mg iv q6 prn and clonidine 0.2 mg tid, an insulin sliding scale, and to consult neurology in the am.
[2019-05-28] MEDS ORDERED: CALC667T6 PO (22:43)
[2019-05-28] MEDS ORDERED: GLUCAGON 1MG KIT 1 MG ML IM PRN (22:45)
[2019-05-28] MEDS ORDERED: DEXTROSE 50%-WATER 50 ML DISP.SYRIN IV PRN (22:45)
[2019-05-28] MEDS ORDERED: HYDRALAZINE HCL 20 MG/ML VIAL ONE (22:51)
[2019-05-28 23:00] VITALS: BP 180/90
[2019-05-28] MEDS ORDERED: INSU100I21 SQ ×2 (23:22)
[2019-05-28] MEDS ORDERED: OMEP40CA13 PO (23:22)
[2019-05-29] MEDS: HYDRALAZINE HCL 20 MG/ML VIAL IV PRN ×2 (03:21→22:05)
[2019-05-29 03:35] VITALS: BP 155/75
[2019-05-29 04:34] LABS: HEMATOCRIT 33.6 % (42-54); MEAN CORPUSCULAR HEMOGLOBIN 30.7 pg (27.0-33.0); MEAN CORPUSCULAR HGB CONC 31.8 g/dL (32.0-36.0); MEAN CORPUSCULAR VOLUME 96.3 fL (79-99); PLATELET COUNT (AUTO) 128 K/uL (130-400); RED BLOOD CELL COUNT(AUTO) 3.49 MIL/uL (4.50-6.20); RED CELL DISTRIBUTION WIDTH 12.9 % (11.0-15.5)
[2019-05-29 04:50] LABS: ALBUMIN 3.2 g/dL (3.5-5.0); BILIRUBIN,TOTAL 0.2 mg/dL (0.2-1.0); POTASSIUM 5.1 mmol/L (3.5-5.1); TOTAL PROTEIN, SERUM 6.4 g/dL (6.0-8.3)
[2019-05-29 04:56] LABS: CREATININE 11.7 mg/dL (0.5-1.5)
[2019-05-29] MEDS: INSULIN HUMULIN R 100 UNIT/ML 3ML SQ SCH ×4 (05:16→22:20)
[2019-05-29 05:37] LABS: BASOPHILS % (MANUAL) 3 % (0-2); EOSINOPHILS % (MANUAL) 10 % (1-6); LYMPHOCYTES % (MANUAL) 22 % (22-44); MONOCYTES % (MANUAL) 3 % (2-9); SEGMENTED NEUTROPHILS % 62 % (40-70)
[2019-05-29 05:38] LABS: MAN.DIFF COMMENT-IMPRESSION MANUAL DIFFERENTIAL
[2019-05-29 05:39] LABS: PLATELET MORPHOLOGY COMMENT LARGE PLTS PRESENT
--- NOTE | 2019-05-29 06:45 | NUR ---
straight cathed the patient as per doctor pedro request. 200 ml of urine output
[2019-05-29 08:00] VITALS: BP 132/69
--- NOTE | 2019-05-29 08:33 | NUR ---
DR REES INFORMED VIA PHONE OF NEW CONSULT
[2019-05-29] MEDS: CLONIDINE HCL 0.2 MG TABLET PO SCH ×3 (09:00→22:06)
--- NOTE | 2019-05-29 10:29 | NUR ---
INITIAL SW spoke with patient's sister, Billie Bartlett, [phone]. Patient lives alone. No home health but as per sister does have [facility] but she not sure name of agency or number of hours. [place] [facility] [place] [place] Patient uses medical transportation for dialysis and MD appts. DME: BPM, glucometer. Sister is not sure if patient has additional DME. Patient is able to complete ADL's independently but does not drive. PCP is Dr. Madie Jacob. Pharmacy is [facility] but sister is not sure which location. Patient has long history of depression and anxiety. He is presently on a 1:1 observation due to altered mental status. DCP is home. Addendum: 05/29/19 at 1035 by KATHERINE MUNOZ SS Amended: Links added.
[2019-05-29 12:00] VITALS: BP 158/79
--- NOTE | 2019-05-29 12:00 | NUR ---
IM LETTER PATIENT LETHARGIC, NO FAMILY IN ROOM. IM LETTER FILED IN CHART.
--- NOTE | 2019-05-29 12:01 | NUR ---
I HAVE CALLED PT'S BROTHER TO ASK IF PT HAS HX OF PACEMAKER OR OTHER METAL IMPLANTS, NO ANSWER, MESSAGE LEFT; I HAVE ALSO LEFT A MESSAGE WITH DR APOLINAR MARTINES TO GO OVER DR REES'S ORDERS WITH HER PENDING HER CALL BACK+
[2019-05-29] MEDS ORDERED: ONDANSETRON HCL 4 MG/2 ML VIAL ONE (12:45)
[2019-05-29 13:00] LABS: ABG BASE EXCESS -4.5 mmol/L (-2.0-3.0); ABG HCO3 19.8 mmol/L (21.0-28.0); ABG PCO2 34 mmHg (35-48)
--- NOTE | 2019-05-29 13:03 | NUR ---
RAPID RESPONSE CALLED ON THE PATIENT AT 1240 BY THE DIALYSIS NURSE; SHE CALLED THE RAPID RESPONSE BECAUSE THE PATIENT WAS NEEDING TO VOMIT DURING THE TREATMENT SHE WAS DOING AND AND PT IS VERY LETHARGIC SO SHE FEARED HE WAS GOING TO ASPIRATE; WHEN I ARRIVED TO THE ROOM, WE SAT THE PATIENT UP IN BED AND HE VOMITED A SMALL AMOUNT OF GREEN BILE IN THE EMESIS BASIN BUT STILL REMAINED VERY LETHARGIC; WE GOT SUCTION SET UP BUT IT WAS NOT NECESSARY, PT CLEARED ALL HIS VOMIT WITHOUT ASPIRATION NOTED; VS TAKEN AT 1242 BP 208/101 BHR 120; I HAVE CALLED DR APOLINAR MARTINES AND REPORTED EPISODE TO HER AND RECEIVED ORDERS FOR LABS, AND ZOFRAN; THE TRANSMISSION MAINTENANCE SUPERVISOR IS HERE NOW DRAWING THE LABS; AT 1246 02 SAT 98% ON 02 2L NC, BP 142/91, HR 85; LABS DRAWN AND PT CONT TO BE LETHARGIC, WHICH WAS HIS NORM PRIOR TO INITIATING DIALYSIS; HE IS SHOWING NO SIGNS OF ASPIRATION; ORDER RECEIVED TO STOP DIALYSIS FOR TODAY AND MONITOR PATIENT.
[2019-05-29 13:22] LABS: ALANINE AMINOTRANSFERASE 20 U/L (12-78); ALBUMIN 2.9 g/dL (3.5-5.0); AMMONIA < 3 umol/L (11-32); ASPARTATE AMINOTRANSFERASE 13 U/L (10-37); BILIRUBIN,TOTAL 0.3 mg/dL (0.2-1.0); CARBON DIOXIDE 21 mmol/L (21-32); CHLORIDE 108 mmol/L (101-111); CREATININE 6.4 mg/dL (0.5-1.5); GLOMERULAR FILTR. RATE CALC 10 mL/min (>60); GLUCOSE,RANDOM 128 mg/dL (70-105); SODIUM SERUM 143 mmol/L (136-145); TOTAL PROTEIN, SERUM 6.1 g/dL (6.0-8.3); UREA NITROGEN, BLOOD 49 mg/dL (7-18)
[2019-05-29 13:24] LABS: BASOPHILS % (AUTO) 1.9 % (0.0-5.0); EOSINOPHILS % (AUTO) 8.2 % (0.0-8.0); HEMATOCRIT 31.4 % (42-54); LYMPHOCYTES % (AUTO) 20.4 % (21.0-51.0); MEAN CORPUSCULAR HEMOGLOBIN 30.6 pg (27.0-33.0); MEAN CORPUSCULAR HGB CONC 32.2 g/dL (32.0-36.0); MEAN CORPUSCULAR VOLUME 95.2 fL (79-99); MONOCYTES % (AUTO) 10.1 % (3.0-13.0); NEUTROPHILS % (AUTO) 59.2 % (40.0-77.0); PLATELET COUNT (AUTO) 119 K/uL (130-400); WHITE BLOOD COUNT (AUTO) 4.3 K/uL (4.8-10.8)
[2019-05-29 13:25] LABS: POTASSIUM 2.8 mmol/L (3.5-5.1)
[2019-05-29 13:32] LABS: TROPONIN I 0.19 ng/mL (0.00-0.06)
--- NOTE | 2019-05-29 13:47 | NUR ---
I REPORTED TO DR JIANG THE LOW POTASSIUM OF 2.8 AND SHE STATED THE BMP IS GOING TO BE ASCEW DUE TO PT GETTING DIALYSIS AT THE TIME OF COLLECTION AND TO RECOLLECT AT 1800 AND NOT TREAT THE CURRENT LEVELS
--- NOTE | 2019-05-29 14:38 | NUR ---
PT IN AND OUT CATHED FOR 200CC OF CLEAR YELLOW URINE AND UA CULTURE COLLECTED AND TAKEN TO LAB; STERILE TECHNIQUE USED, HANDS WASHED FIRST, MEATUS CLEANSED WITH BETADINE THEN CATHERITAZATION DONE; PT BARTOLO. POORLY YELLING DURING THE PROCESS THAT IT HURT; HE IS AWAKENED AND WAS TALKING TO ME DURING THE PROCEDURE THEN WHEN DONE HE IMMEDIATLY WENT BACK TO SLEEP AND WAS DIFFICULT TO AROUSE HE HAS BEEN SINCE ADMISSION; WILL CONT TO MONITOR.
[2019-05-29] MEDS ORDERED: PHARMACY COMMUNICATION MISC SCH (15:30)
[2019-05-29] MEDS ORDERED: COMPOUND IV MISC 1 EACH IVSOLN MISC PRN (15:45)
[2019-05-29 16:00] VITALS: BP 142/91
[2019-05-29] MEDS: VALPROIC ACID (AS SODIUM SALT) 500 MG in SODIUM CHLORIDE 0.9% 50 ML IV SCH ×2 (16:00→18:00)
--- NOTE | 2019-05-29 17:00 | NUR ---
WHEN PT RETURNED FROM MRI HE IS AWAKE, ALERT AND ORIENTED AND ATTEMPTING TO PULL OUT HIS IV ACCESS; STATING HE IS GOING TO LEAVE AND WALK OUT; HE DID AGREE TO STAY TEMPORARILY; I SPOKE TO DR APOLINAR MARTINES ON THE PHONE AND SHE STATED THAT IS HIS NORM THAT HE WALKS OUT FREQUENTLY OF HIS DIALYSIS TREATMENTS AND IF HE CONT. TO WANT TO LEAVE TO LET HIM LEAVE AMA.
--- NOTE | 2019-05-29 18:00 | NUR ---
PT REFUSED TO LET ME ATTACH THE VALPROIC ACID TO HIS IV ACCESS; HE IS REFUSING HIS FOOD AND REFUSING FOR US TO GET ANYWHERE NEAR HIM IN THE ROOM
[2019-05-29 20:00] VITALS: BP 191/86
[2019-05-29] MEDS ORDERED: VALPROATE SOD 250 MG/5 ML (PO) PO SCH (21:00)
[2019-05-29] MEDS: ONDANSETRON HCL 4 MG/2 ML VIAL IVP PRN (22:05)
[2019-05-30 00:30] VITALS: BP 170/95
[2019-05-30] MEDS: VALPROIC ACID (AS SODIUM SALT) 500 MG in SODIUM CHLORIDE 0.9% 50 ML IV SCH (03:48)
[2019-05-30 03:59] VITALS: BP 153/71
[2019-05-30 05:40] LABS: HEMATOCRIT 36.7 % (42-54); MEAN CORPUSCULAR HEMOGLOBIN 29.5 pg (27.0-33.0); MEAN CORPUSCULAR HGB CONC 31.1 g/dL (32.0-36.0); MEAN CORPUSCULAR VOLUME 94.8 fL (79-99); PLATELET COUNT (AUTO) 151 K/uL (130-400); RED BLOOD CELL COUNT(AUTO) 3.87 MIL/uL (4.50-6.20); RED CELL DISTRIBUTION WIDTH 13.1 % (11.0-15.5); WHITE BLOOD COUNT (AUTO) 5.9 K/uL (4.8-10.8)
[2019-05-30] MEDS: ONDANSETRON HCL 4 MG/2 ML VIAL IVP PRN ×2 (05:46→11:11)
[2019-05-30 05:53] LABS: BAND NEUTROPHILS % (MANUAL) 2 % (0-2); BASOPHILS % (MANUAL) 4 % (0-2); EOSINOPHILS % (MANUAL) 1 % (1-6); LYMPHOCYTES % (MANUAL) 25 % (22-44); MAN.DIFF COMMENT-IMPRESSION MANUAL DIFFERENTIAL; MONOCYTES % (MANUAL) 4 % (2-9); SEGMENTED NEUTROPHILS % 64 % (40-70)
[2019-05-30 05:54] LABS: ALBUMIN 3.4 g/dL (3.5-5.0); BILIRUBIN,TOTAL 0.3 mg/dL (0.2-1.0); PLATELET MORPHOLOGY COMMENT ADEQUATE; POTASSIUM 4.6 mmol/L (3.5-5.1); TOTAL PROTEIN, SERUM 7.2 g/dL (6.0-8.3)
[2019-05-30 05:55] LABS: CREATININE 10.2 mg/dL (0.5-1.5)
--- NOTE | 2019-05-30 06:45 | NUR ---
ROUNDS DR. LOVE HERE TO SEE PATIENT. UPDATED ON EPISODES OF NAUSEA AND VOMITING HE HAS HAD, MEDICATED WITH ZOFRAN 2 TIMES DURING NIGHT. 2DECHO PENDING, MENTAL STATUS: PATIENT AWAKENS AND ONCE TIME WAS WANTING TO GET UP BUT WAS TOO WEAK AND STILL INSISTED. SITTER SPOKE TO HIM A FEW TIMES AND HE DESISTED. AT A LATER TIME HE WAS ABLE TO STAND AND WALK A FEW STEPS. ORDERS RECEIVED FOR PATIENT TO RECEIVED ANOTHER HEMODIALYSIS TREATMENT TODAY AND ADD CARDIAC ENZYMES TO LABS.
[2019-05-30 08:07] LABS: TROPONIN I 0.3 ng/mL (0.00-0.06)
[2019-05-30] MEDS: CLONIDINE HCL 0.2 MG TABLET PO SCH ×3 (09:19→14:29)
[2019-05-30] MEDS: INSULIN HUMULIN R 100 UNIT/ML 3ML SQ SCH ×2 (09:19→11:30)
[2019-05-30 14:00] VITALS: BP 167/79
--- NOTE | 2019-05-30 15:00 | NUR ---
PT BECOMING INCREASINGLY AGITATED PT STATED WE ARE "MAKING HIM SICK" AND HE KNOWS WE ARE "DOING IT ON PURPOSE" PT REMOVED IV AGAINST NURSES WISHES. PT EDUCATED AND NOT EASILY PERSUADED. BECOMING INCREASINGLY AGITATED. SITTER AT BEDSIDE TO ASSIST. DR APOLINAR MARTINES MADE AWARE. STATED NEW ORDER FOR PSYCHOLOGY CONSULT. THIS NURSE INFORMED MD THAT PT MIGHT NOT WAIT FOR PSYCHIATRIST. MD VERBALIZED UNDERSTANDING. GEM SISTER WAS CALLED- STATED SHE CANNOT CHIEF SCIENCE OFFICER PATIENT DUE TO NO SHANK RANDER. BROTHER JAYLEN DOES NOT ANSWER X 3. LEFT MESSAGE. PENDING CB. PT PACING HALLWAYS. DOES NOT WANT TO BE QUESTIONED OR TOUCHED. DIRECTOR OF DIAGNOSTIC IMAGING MADE AWARE
--- NOTE | 2019-05-30 15:38 | NUR ---
AMA SPOKE TO SISTER GEM STATED PT USES TRANSPORTATION AND TO DANELLE THEM. SISITER WAS NOT ABLE TO GIVE NUMBER. WHEN PT WAS ASKED WHAT THE NUMBER IS HE SCREAMED "JUST LEAVE ME ALONE ALREADY". WILL CONT TO MONITOR
[2019-05-30] MEDS ORDERED: AMLODIPINE BESYLATE 5 MG TAB PO SCH (15:45)
--- NOTE | 2019-05-30 15:47 | NUR ---
DR MCGRATH CALLED REGARDING CONSULT. STATED HE WILL SEE PT IN EVENING.
--- NOTE | 2019-05-30 16:05 | NUR ---
DOOR PT KEEPS CLOSING DOOR, REFUSING TO LEAVE IT OPEN DESPITE REDIRECTION AND SEVERAL ATTEMPTS TO KEEP OPEN.
--- NOTE | 2019-05-30 16:43 | NUR ---
WILLIAN HERE FOR PT TO TAKE HOME. DR APOLINAR MARTINES AWARE. PT LEAVES AMA, REFUSES TO SIGN FORM. SEVERAL WITNESSES PRESENT
--- NOTE | 2019-05-30 16:47 | NUR ---
BROTHER PICKED UP PATIENT. PT AMBULATING AT SIDE. AMA FORM SIGNED
[2019-05-30] MEDS ORDERED: VALPROATE SOD 250 MG/5 ML (PO) PO SCH (21:00)
[2019-05-30] MEDS ORDERED: CLONIDINE HCL 0.2 MG TABLET PO SCH (21:00)
== END 2019-05-30 16:45 | disposition left against medical advice (07) | DRG 91 ==
LOC: EDH 14:37 → EDHIP 17:44 → OBSVTOIN 17:44 → 3CH 19:33
PROVIDERS: ADMIT Internal Medicine Nephrology; ATTEND Internal Medicine Nephrology
PROC: 5A1D70Z Performance of Urinary Filtration, Intermittent, Less than 6 Hours Per Day (ICD-10-PCS; principal; 2019-05-29)
PROC: 5A1D70Z Performance of Urinary Filtration, Intermittent, Less than 6 Hours Per Day (ICD-10-PCS; 2019-05-30)
DX: G92 Toxic encephalopathy (principal); N18.6 End stage renal disease; I12.0 Hypertensive chronic kidney disease with stage 5 chronic kidney disease or end stage renal disease; I16.1 Hypertensive emergency; E87.5 Hyperkalemia; Z99.2 Dependence on renal dialysis; E11.22 Type 2 diabetes mellitus with diabetic chronic kidney disease; D63.1 Anemia in chronic kidney disease; E11.51 Type 2 diabetes mellitus with diabetic peripheral angiopathy without gangrene; E78.5 Hyperlipidemia, unspecified; F17.210 Nicotine dependence, cigarettes, uncomplicated; E87.70 Fluid overload, unspecified; F41.1 Generalized anxiety disorder; Z53.29 Procedure and treatment not carried out because of patient's decision for other reasons; K21.9 Gastro-esophageal reflux disease without esophagitis; E83.51 Hypocalcemia; G25.3 Myoclonus; Z91.15 Patient's noncompliance with renal dialysis; Z91.19 Patient's noncompliance with other medical treatment and regimen; Z79.899 Other long term (current) drug therapy
CPT/HCPCS: 36415; 36600; 70450; 70551; 71045; 80053; 80305; 81001; 82140; 82435; 82550; 82803; 82947; 82948; 83605; 83874; 84132; 84295; 84484; 85018; 85025; 85610; 85730; 87040; 87077; 87088; 87186; 90935; 99291; G0378; J0360; J1815; J2405